=== PATIENT | male | born 1985 | race Caucasian/White ===

== ENCOUNTER 2018-01-21 15:22 | Emergency (ER) | payer OTHER ==
[~2018-01-21] VITALS: Ht 182.9 cm; Wt 83.7 kg
[2018-01-21 15:28] VITALS: BP 150/72; PULSE 81; RESP 16; TEMP 97.7; O2SAT 98
[2018-01-21] MEDS ORDERED: BUSP5TAB PO (16:15)
[2018-01-21] MEDS ORDERED: PAXI10TA8 PO (16:15)
[2018-01-21] MEDS ORDERED: SODIUM CHLORIDE 0.9% FLUSH 10 ML FLUSH IVF PRN (16:15)
[2018-01-21 16:16] VITALS: BP 142/68; PULSE 70; RESP 16; O2SAT 98
[2018-01-21 16:20] VITALS: BP_SYST 124; BP_SYST 142; BP_DIAS 71; BP_DIAS 78; PULSE 75; RESP 16; O2SAT 99
--- NOTE | 2018-01-21 16:21 | PD ---
HPI Chief Complaint: Chest Pain Time Seen by Provider: 16:13 Travel History International Travel<30 days: No Contact w/Intl Traveler<30days: No Traveled to known affect area: No History of Present Illness HPI 32-year-old male patient with history of no significant past medical issues, presents to the ER today with one-week history of substernal chest discomfort which she rates at an 8 out of 10 at times, shortness of breath, paresthesias around the fingers and the lips, seen last week by the CT and prescribed Paxil and BuSpar, states that is not helping that much, feels worse today. He had taken the BuSpar before he came and states that it is now subsiding. He denies being more stressed out than usual. He denies any long car rides or train rides. Modifying Factors: None Associated Signs & Symptoms: Chest discomfort, shortness of breath, paresthesias , palpitations Risk Factors: Seen for the same recently at the CT last week, diagnosed with anxiety [facility] Social History Tobacco Use: No Allergies-Medications (Allergen,Severity, Reaction): Coded Allergies: No Known Allergies (Unverified , 01/21/18) Reported Meds & Prescriptions Reported Meds & Active Scripts Active Reported Paxil (Paroxetine HCl) 10 Mg Tab 10 Mg PO DAILY Buspirone (Buspirone HCl) 5 Mg Tab 5 Mg PO BID Review of Systems Except as stated in HPI: all other systems reviewed are Neg Physical Exam Narrative GENERAL: Well-developed young male patient currently in mild distress. Awake and oriented 3. SKIN: Focused skin assessment warm/dry. HEAD: Atraumatic. Normocephalic. EYES: Pupils equal and round. No scleral icterus. No injection or drainage. ENT: No nasal bleeding or discharge. Mucous membranes pink and moist. NECK: Trachea midline. No JVD. Supple. CARDIOVASCULAR: Regular rate and rhythm. No murmur appreciated. Pulses are present and equal bilaterally. RESPIRATORY: No accessory muscle use. Clear to auscultation. Breath sounds equal bilaterally. GASTROINTESTINAL: Abdomen soft, non-tender, nondistended. Hepatic and splenic margins not palpable. MUSCULOSKELETAL: No obvious deformities. No clubbing. No cyanosis. No edema. NEUROLOGICAL: Awake and alert. No obvious cranial nerve deficits. Motor grossly within normal limits. Normal speech. PSYCHIATRIC: Appropriate mood and affect; insight and judgment normal. Data Data Last Documented VS Vital Signs Date Time Temp Pulse Resp B/P (MAP) Pulse Ox O2 Delivery O2 Flow Rate FiO2 01/21/18 18:04 67 18 111/76 (88) 99 Room Air 01/21/18 15:28 97.7 Orders Orders Electrocardiogram (01/21/18 15:31) Ckmb (Isoenzyme) Profile (01/21/18 16:13) Complete Blood Count With Diff (01/21/18 16:13) Comprehensive Metabolic Panel (01/21/18 16:13) D-Dimer (01/21/18 16:13) Magnesium (Mg) (01/21/18 16:13) Prothrombin Time / Inr (Pt) (01/21/18 16:13) Act Partial Throm Time (Ptt) (01/21/18 16:13) Troponin I (01/21/18 16:13) Ecg Monitoring (01/21/18 16:13) Bilateral Bp Monitoring (01/21/18 16:13) Iv Access Insert/Monitor (01/21/18 16:13) Oximetry (01/21/18 16:13) Oxygen Administration (01/21/18 16:13) Sodium Chloride 0.9% Flush (Ns Flush) (01/21/18 16:15) Chest, Pa & Lat (01/21/18 16:13) Labs Laboratory Tests Test 01/21/18 17:20 White Blood Count 7.0 TH/MM3 Red Blood Count 4.71 MIL/MM3 Hemoglobin 14.4 GM/DL Hematocrit 41.9 % Mean Corpuscular Volume 88.9 FL Mean Corpuscular Hemoglobin 30.6 PG Mean Corpuscular Hemoglobin Concent 34.4 % Red Cell Distribution Width 11.7 % Platelet Count 282 TH/MM3 Mean Platelet Volume 6.5 FL Neutrophils (%) (Auto) 56.7 % Lymphocytes (%) (Auto) 27.5 % Monocytes (%) (Auto) 11.3 % Eosinophils (%) (Auto) 3.7 % Basophils (%) (Auto) 0.8 % Neutrophils # (Auto) 3.9 TH/MM3 Lymphocytes # (Auto) 1.9 TH/MM3 Monocytes # (Auto) 0.8 TH/MM3 Eosinophils # (Auto) 0.3 TH/MM3 Basophils # (Auto) 0.1 TH/MM3 CBC Comment DIFF FINAL Differential Comment Prothrombin Time 10.4 SEC Prothromb Time International Ratio 1.0 RATIO Activated Partial Thromboplast Time 24.6 SEC D-Dimer Quantitative (PE/DVT) LESS THAN 0.19 MG/L FEU Blood Urea Nitrogen 15 MG/DL Creatinine 0.77 MG/DL Random Glucose 79 MG/DL Total Protein 6.7 GM/DL Albumin 3.6 GM/DL Calcium Level 8.5 MG/DL Magnesium Level 2.3 MG/DL Alkaline Phosphatase 68 U/L Aspartate Amino Transf (AST/SGOT) 9 U/L Alanine Aminotransferase (ALT/SGPT) 19 U/L Total Bilirubin 0.2 MG/DL Sodium Level 141 MEQ/L Potassium Level 3.8 MEQ/L Chloride Level 106 MEQ/L Carbon Dioxide Level 28.3 MEQ/L Anion Gap 7 MEQ/L Estimat Glomerular Filtration Rate 117 ML/MIN Total Creatine Kinase 68 U/L Troponin I LESS THAN 0.02 NG/ML MDM Medical Decision Making Medical Screen Exam Complete: Yes Emergency Medical Condition: Yes Medical Record Reviewed: Yes Interpretation(s) EKG shows a normal sinus rhythm at a rate of 70 bpm. No signs of delta waves, or QT prolongation. Laboratory Tests Test 01/21/18 17:20 Mean Platelet Volume 6.5 FL (7.0-11.0) Monocytes (%) (Auto) 11.3 % (0.0-8.0) Aspartate Amino Transf (AST/SGOT) 9 U/L (15-37) Troponin I LESS THAN 0.02 NG/ML Last 24 hours Impressions Chest X-Ray 01/21/18 1613 Signed Impressions: Service Date/Time: Sunday, January 21, 2018 16:20 - CONCLUSION: No acute disease. Óscar See MD FACR Differential Diagnosis Anxiety attack versus dysrhythmias versus metabolic issues versus ACS Narrative Course EKG did not show any signs of dysrhythmias. Chest x-ray and lab work was fairly unremarkable. Patient's symptoms are settling down while he was observed in the ER. At this point, I have discussed the findings with the patient and have discussed outpatient follow-up for cardiac evaluation versus admission for the chest pain center for further cardiac evaluation. Patient states that he is scheduled to get a Holter monitor this coming week and has already seen primary care doctor who is doing further workup. He states he is comfortable following up as an outpatient. He should return for worsening in symptoms as necessary. The plan has been discussed with the patient and he states understanding. Diagnosis Primary Impression: Atypical chest pain Disposition: 01 DISCHARGE HOME Condition: Stable Miguel Robertson MD Jan 21, 2018 16:21
--- NOTE | 2018-01-21 16:43 | RADRPT ---
EXAM DATE/TIME: 01/21/2018 16:20 [place] COMPARISON: No previous studies available for comparison. INDICATIONS : Chest pain. MEDICAL HISTORY : None. SURGICAL HISTORY : None. ENCOUNTER: Initial ACUITY: 1 day PAIN SCORE: 7/10 LOCATION: Bilateral chest FINDINGS: PA and lateral views of the chest demonstrate the lungs to be symmetrically aerated without evidence of mass, infiltrate or effusion. The cardiomediastinal contours are unremarkable. Osseous structure s are intact. CONCLUSION: No acute disease. Óscar See MD FACR on January 21, 2018 at 16:41 Board Certified Radiologist. This report was verified electronically.
[2018-01-21 17:25] VITALS: O2SAT 98
[2018-01-21 17:25] LABS: AUTOMATED NEUTROPHIL # 3.9 TH/MM3 (1.8-7.7); BASOPHIL # 0.1 TH/MM3 (0-0.2); BASOPHIL % 0.8 % (0.0-2.0); EOSINOPHIL # 0.3 TH/MM3 (0-0.4); EOSINOPHIL % 3.7 % (0.0-4.0); HEMATOCRIT 41.9 % (39.0-51.0); HEMOGLOBIN 14.4 GM/DL (13.0-17.0); LYMPH % 27.5 % (9.0-44.0); LYMPHOCYTE # 1.9 TH/MM3 (1.0-4.8); MEAN CELL VOLUME 88.9 FL (80.0-100.0); MEAN CORPUSCULAR HEMOGLOBIN 30.6 PG (27.0-34.0); MEAN CORPUSCULAR HGB CONC 34.4 % (32.0-36.0); MEAN PLATELET VOLUME 6.5 FL (7.0-11.0); MONO % 11.3 % (0.0-8.0); MONOCYTE # 0.8 TH/MM3 (0-0.9); NEUT % 56.7 % (16.0-70.0); PLATELET COUNT 282 TH/MM3 (150-450); RED BLOOD COUNT 4.71 MIL/MM3 (4.50-5.90); RED CELL DISTRIBUTION WIDTH 11.7 % (11.6-17.2)
[2018-01-21 17:34] LABS: CHLORIDE 106 MEQ/L (98-107); SODIUM (NA) 141 MEQ/L (136-145)
[2018-01-21 17:38] LABS: ALBUMIN 3.6 GM/DL (3.4-5.0); BICARBONATE 28.3 MEQ/L (21.0-32.0); BLOOD UREA NITROGEN 15 MG/DL (7-18); CALCIUM 8.5 MG/DL (8.5-10.1); GLUCOSE,RANDOM 79 MG/DL (74-106); MAGNESIUM 2.3 MG/DL (1.5-2.5)
[2018-01-21 17:41] LABS: ALT (GPT) 19 U/L (12-78); AST (GOT) 9 U/L (15-37)
[2018-01-21 17:42] LABS: CREATININE 0.77 MG/DL (0.60-1.30); GLOMERULAR FILTRATION RATE 117 ML/MIN (>89)
[2018-01-21 17:43] LABS: TOTAL BILIRUBIN ADULT 0.2 MG/DL (0.2-1.0); TOTAL PROTEIN 6.7 GM/DL (6.4-8.2)
[2018-01-21 17:44] LABS: ALKALINE PHOSPHATASE 68 U/L (45-117)
[2018-01-21 17:46] LABS: TROPONIN I LESS THAN 0.02 NG/ML (0.02-0.05)
[2018-01-21 17:56] LABS: PROTHROMBIN TIME - PATIENT 10.4 SEC (9.8-11.6)
[2018-01-21 18:01] LABS: D-DIMER LESS THAN 0.19 MG/L FEU (0.00-0.50)
[2018-01-21 18:04] VITALS: BP 111/76; PULSE 67; RESP 18; O2SAT 99
--- NOTE | 2018-01-22 16:45 | EKG ---
Date Performed: 01/21/2018 Time Performed: 15:35:19 PTAGE: 32 years EKG: Sinus rhythm POSSIBLE RIGHT VENTRICULAR CONDUCTION DELAY BORDERLINE ECG INTERPRETATION BASED ON A DEFAULT AGE OF 40 YEARS NO PREVIOUS TRACING DOCTOR: Sam Hester Interpretating Date/Time 01/22/2018 16:46:21
== END 2018-01-21 19:03 | disposition home or self-care (01) ==
LOC: PHED 15:22
DX: R07.89 Other chest pain (principal); R06.02 Shortness of breath; R20.2 Paresthesia of skin; F41.9 Anxiety disorder, unspecified; Z79.899 Other long term (current) drug therapy
CPT/HCPCS: 71046; 80053; 82550; 83735; 84484; 85025; 85379; 85610; 85730; 93005; 99285

== ENCOUNTER 2018-07-26 10:48 | Observation (INO) ==
[2018-07-26] MEDS ORDERED: Sod Chloride 0.9% Inj 1,000 ML IV.SIG ONE (11:12)
[2018-07-26] MEDS ORDERED: Aluminum/Magnesium/Simethacone Susp 30 ML UDC PO ONE (11:12)
--- NOTE | 2018-07-26 11:16 | ED ---
HPI General Chief complaint: Abdominal Pain Stated complaint: ABD PAIN, N/V/D Time Seen by Provider: 07/26/18 11:05 History of Present Illness HPI narrative: 33-year-old male with history of GERD, started taking ranitidine 3 weeks ago, here for evaluation of 3-4 days of abdominal pain, nausea, vomiting , and diarrhea. Patient reports mid and epigastric abdominal pain that he describes as a knot type sensation, currently 6 out of 10, constant, intermittent and worse at times, nonradiating. The patient notices his symptoms seem worse after eating tomato based products. Bowel movements have been loose/watery/brown. He denies melena or hematochezia. Last episode of vomiting was 2 days ago. He reports feeling nauseous today. No fevers or chills. No history of abdominal surgeries. No recent travel. No sick contacts. Denies alcohol or illicit drug use. Related Data Home Medications Medication Instructions Recorded Confirmed buspirone 7.5 mg PO TID 07/26/18 07/26/18 ranitidine HCl [Zantac] 150 mg PO DAILY 07/26/18 07/26/18 Allergies Allergy/AdvReac Type Severity Reaction Status Date / Time No Known Allergies Allergy Verified 07/26/18 11:41 Review of Systems ROS: all other systems reviewed are negative [facility] Medical History Medical History GERD (gastroesophageal reflux disease) (Acute) Panic attack (Acute) Anxiety (Acute) PTSD (post-traumatic stress disorder) (Acute) Surgical History Surgical History No history of previous surgery (Acute) Social History Social History Substance History: Active Abuse Second Hand Smoke Exposure: No Smoking Status: Former smoker Tobacco Type: Cigarettes How Often Do You Have a Drink Containing Alcohol: Never Recent Travel in [facility] within the Last 8 Weeks: No Recent Out of Country Travel within the Last 8 Weeks: No Exam Narrative Exam Narrative: GENERAL: Well-developed, well-nourished, comfortable, no apparent distress. SKIN: Focused skin assessment warm/dry. No rash. HEAD: Atraumatic. Normocephalic. EYES: Pupils equal and round. No scleral icterus. No injection or drainage. ENT: Mucous membranes pink and moist. NECK: Trachea midline. No JVD. CARDIOVASCULAR: Regular rate and rhythm. RESPIRATORY: No accessory muscle use. Clear to auscultation. Breath sounds equal bilaterally. GASTROINTESTINAL: Abdomen soft, nondistended. Mild mid and epigastric tenderness without peritoneal signs. Normal bowel sounds. Rest of abdomen is soft and nontender. No hernias. MUSCULOSKELETAL: No obvious deformities. No clubbing. No cyanosis. No edema. NEUROLOGICAL: Awake and alert. No obvious cranial nerve deficits. Motor grossly within normal limits. Normal speech. PSYCHIATRIC: Appropriate mood and affect; insight and judgment normal. Course Initial Documented Vital Signs Temperature 98 F 07/26/18 10:51 Pulse Rate 80 07/26/18 10:51 Respiratory Rate 16 07/26/18 10:51 Blood Pressure 100/61 07/26/18 10:51 Pulse Oximetry 96 07/26/18 10:51 Last Documented Vital Signs Temperature 98 F 07/26/18 10:51 Pulse Rate 80 07/26/18 10:51 Respiratory Rate 16 07/26/18 10:51 Blood Pressure 100/61 07/26/18 10:51 Pulse Oximetry 96 07/26/18 10:51 Medical Decision Making MDM Narrative Medical decision making narrative: Vital signs reviewed. CBC is unremarkable. CMP is essentially unremarkable. Lipase is 733. CT abdomen pelvis: No acute findings. Patient was made aware of all findings. At this point he was provided a GI cocktail and Zofran without any improvement in his pain. He will be given a dose of morphine, and a right upper quadrant ultrasound will be ordered to rule out gallstones/gallstone pancreatitis. Right upper quadrant ultrasound read as unremarkable study. Patient was provided 4 mg of IV morphine. This gave him a flushing/lightheaded sensation as well as made him feel short of breath. The symptoms quickly resolved. States his pain has improved slightly, however is still a 4 out of 10. Case discussed with hospitalist Dr. Oscar who will admit the patient to the hospitalist service. Medical Screen Exam Complete: Yes Emergency Medical Condition: Yes Differential Diagnosis Differential Diagnosis: Gastritis, peptic ulcer disease, pancreatitis, hepatobiliary disease, gastroenteritis, appendicitis, colitis, diverticulitis Lab Data Result diagrams: 07/26/18 11:30 07/26/18 11:30 Lab Results 07/26/18 07/26/18 07/26/18 Range/Units 11:30 11:30 11:30 CBC w Diff Auto diff final WBC 4.1 (4.0-11.0) th/mm3 RBC 4.75 (4.50-5.90) mil/mm3 Hgb 15.0 (13.0-17.0) gm/dL Hct 43.5 (39.0-51.0) % MCV 91.5 (80.0-100.0) fL MCH 31.6 (27.0-34.0) pg MCHC 34.5 (32.0-36.0) % RDW 11.3 L (11.6-17.2) % Plt Count 256 (150-450) th/mm3 MPV 6.9 L (7.0-11.0) fL Neut % (Auto) 55.1 (16.0-70.0) % Lymph % (Auto) 30.9 (9.0-44.0) % [place] % (Auto) 8.7 H (0.0-8.0) % Eos % (Auto) 3.7 (0.0-4.0) % Baso % (Auto) 1.6 (0.0-2.0) % Neut # (Auto) 2.1 (1.8-7.7) th/mm3 Lymph # (Auto) 1.3 (1.0-4.8) th/mm3 [place] # (Auto) 0.4 (0.0-0.9) th/mm3 Eos # (Auto) 0.2 (0.0-0.4) th/mm3 Baso # (Auto) 0.1 (0.0-0.2) th/mm3 WBC Differential . Differential Comment . PT 10.5 (9.8-11.6) sec INR 1.0 Ratio APTT 25.2 (24.3-30.1) sec Sodium 141 (136-145) meq/L Potassium 4.2 (3.5-5.1) meq/L Chloride 105 (98-107) meq/L Carbon Dioxide 29.7 (21.0-32.0) meq/L Anion Gap 6 (5-15) meq/L BUN 10 (7-18) mg/dL Creatinine 0.77 (0.60-1.30) mg/dL Estimated GFR Greater than 89 (>89) mL/min Random Glucose 91 (74-106) mg/dL Calcium 8.3 L (8.5-10.1) mg/dL Magnesium 2.1 (1.5-2.5) mg/dL Total Bilirubin 0.4 (0.2-1.0) mg/dL AST 14 L (15-37) U/L ALT 18 (12-78) U/L Alkaline Phosphatase 63 (45-117) U/L Troponin I Less than 0.02 L (0.02-0.05) ng/mL Total Protein 6.7 (6.4-8.2) g/dL Albumin 3.6 (3.4-5.0) g/dL Lipase 733 H (73-393) U/L Ur Collection Type Urine Color (Yellw/Straw) Urine Clarity (Clear) Urine pH (5.0-8.5) Ur Specific [place] (1.002-1.035) Urine Protein (Neg-Trace) mg/dL Urine Glucose (UA) (Negative) mg/dL Urine Ketones (Negative) mg/dL Urine Occult Blood (Negative) Urine Nitrate (Negative) Urine Bilirubin (Negative) Urine Urobilinogen (Less than 2) mg/dL Ur Leukocyte Esterase (Negative) Urine RBC (0-3) /hpf Ur Squamous Epith Cells (0-5) /hpf Micro UA Comment Ur Microscopic Review Urine Culture Comments 07/26/18 Range/Units 12:20 CBC w Diff WBC (4.0-11.0) th/mm3 RBC (4.50-5.90) mil/mm3 Hgb (13.0-17.0) gm/dL Hct (39.0-51.0) % MCV (80.0-100.0) fL MCH (27.0-34.0) pg MCHC (32.0-36.0) % RDW (11.6-17.2) % Plt Count (150-450) th/mm3 MPV (7.0-11.0) fL Neut % (Auto) (16.0-70.0) % Lymph % (Auto) (9.0-44.0) % [place] % (Auto) (0.0-8.0) % Eos % (Auto) (0.0-4.0) % Baso % (Auto) (0.0-2.0) % Neut # (Auto) (1.8-7.7) th/mm3 Lymph # (Auto) (1.0-4.8) th/mm3 [place] # (Auto) (0.0-0.9) th/mm3 Eos # (Auto) (0.0-0.4) th/mm3 Baso # (Auto) (0.0-0.2) th/mm3 WBC Differential Differential Comment PT (9.8-11.6) sec INR Ratio APTT (24.3-30.1) sec Sodium (136-145) meq/L Potassium (3.5-5.1) meq/L Chloride (98-107) meq/L Carbon Dioxide (21.0-32.0) meq/L Anion Gap (5-15) meq/L BUN (7-18) mg/dL Creatinine (0.60-1.30) mg/dL Estimated GFR (>89) mL/min Random Glucose (74-106) mg/dL Calcium (8.5-10.1) mg/dL Magnesium (1.5-2.5) mg/dL Total Bilirubin (0.2-1.0) mg/dL AST (15-37) U/L ALT (12-78) U/L Alkaline Phosphatase (45-117) U/L Troponin I (0.02-0.05) ng/mL Total Protein (6.4-8.2) g/dL Albumin (3.4-5.0) g/dL Lipase (73-393) U/L Ur Collection Type Clean catch Urine Color Yellow (Yellw/Straw) Urine Clarity Clear (Clear) Urine pH 8.5 (5.0-8.5) Ur Specific [place] 1.010 (1.002-1.035) Urine Protein Negative (Neg-Trace) mg/dL Urine Glucose (UA) Negative (Negative) mg/dL Urine Ketones Negative (Negative) mg/dL Urine Occult Blood Negative (Negative) Urine Nitrate Negative (Negative) Urine Bilirubin Negative (Negative) Urine Urobilinogen 0.2 (Less than 2) mg/dL Ur Leukocyte Esterase Negative (Negative) Urine RBC 0-3 (0-3) /hpf Ur Squamous Epith Cells 0-5 (0-5) /hpf Micro UA Comment Culture not ind Ur Microscopic Review Microscopic reviewed Urine Culture Comments Culture not ind Imaging Data Radiologist's impression: Abdomen/Pelvis CT 07/26/18 11:12 CONCLUSION: No acute CT findings in the abdomen or pelvis. Gallbladder Ultrasound 07/26/18 12:20 CONCLUSION: 1. Unremarkable study. ECG Data Attestation: I personally reviewed and interpreted this ECG as follows: (Sinus with sinus arrhythmia, rate 61, normal axis, incomplete RBBB, no acute ischemic abnormality.) Discharge Plan Discharge Disposition Patient Disposition: 30 Still Patient Discharge Condition Condition: Stable Discharge Details Diagnosis: Pancreatitis, Intractable abdominal pain Physicians Team ED Provider: Mike Gutierrez Primary Care Provider: UNKNOWN, Rxs /Orders / Referrals /Forms Prescriptions: No Action ranitidine HCl [Zantac] 150 mg Tablet 150 mg PO DAILY RF: 0 buspirone 7.5 mg Tablet 7.5 mg PO TID RF: 0 Status ED Status: With Doctor
[2018-07-26 11:35] LABS: Baso # (Auto) 0.1 th/mm3 (0.0-0.2); Baso % (Auto) 1.6 % (0.0-2.0); Eos # (Auto) 0.2 th/mm3 (0.0-0.4); Eos % (Auto) 3.7 % (0.0-4.0); Hematocrit 43.5 % (39.0-51.0); Lymph # (Auto) 1.3 th/mm3 (1.0-4.8); Lymph % (Auto) 30.9 % (9.0-44.0); Mean Corpuscular HGB Conc 34.5 % (32.0-36.0); Mean Corpuscular Hemoglobin 31.6 pg (27.0-34.0); Mean Corpuscular Volume 91.5 fL (80.0-100.0); Mean Platelet Volume 6.9 fL (7.0-11.0); Mono # (Auto) 0.4 th/mm3 (0.0-0.9); Mono % (Auto) 8.7 % (0.0-8.0); Neut # (Auto) 2.1 th/mm3 (1.8-7.7); Neut % (Auto) 55.1 % (16.0-70.0); Platelet Count 256 th/mm3 (150-450); Red Blood Count 4.75 mil/mm3 (4.50-5.90); Red Cell Distribution Width 11.3 % (11.6-17.2); White Blood Count 4.1 th/mm3 (4.0-11.0)
[2018-07-26 11:45] LABS: Chloride 105 meq/L (98-107); Potassium 4.2 meq/L (3.5-5.1); Sodium 141 meq/L (136-145)
--- NOTE | 2018-07-26 11:47 | CT ---
EXAM DATE: 07/26/2018 11:14 AM EDT AGE/SEX: 33 years / Male INDICATIONS: Mid Epigastric abdominal pain with nausea, vomiting, and diarrhea. CLINICAL DATA: This is the patient's initial encounter. Patient reports that signs and symptoms have been present for 3 days and indicates a pain score of 6/10. MEDICAL/SURGICAL HISTORY: Gastroesophageal reflux disease. None. ORAL CONTRAST: No oral contrast ingested. RADIATION DOSE: 13.11 CTDI (mGy) COMPARISON: No prior exams available for comparison. TECHNIQUE: Multiple contiguous axial images were obtained through the abdomen and pelvis following b olus infusion of 95 ml Omnipaque 350 (iohexol) nonionic water-soluble contrast as a single exam dos e. No oral contrast ingested. Using automated exposure control and adjustment of the mA and/or kV ac cording to patient size, radiation dose was kept as low as reasonably achievable to obtain optimal di agnostic quality images. DICOM format image data is available electronically for review and comparis on. FINDINGS: Lower Lungs: The visualized lower lungs are clear. Liver: The liver has a homogeneous density without space-occupying lesion. There is no dilation of th e biliary tree. Spleen: Homogeneous density without enlargement. Pancreas: Unremarkable without mass or calcification. Kidneys: Normal in size and shape. No evidence of mass or hydronephrosis. Adrenal Glands: Unremarkable. Aorta: The aorta and proximal iliac vessels are grossly unremarkable without aneurysmal dilation. Bowel/Mesentery: The bowel loops are grossly unremarkable. The cecum and sigmoid colon have a normal configuration. Abdominal Wall: Intact. Retroperitoneum: No evidence of adenopathy in the retrocrural, para-aortic, or deep pelvic regions. Bladder: Contours are smooth. Reproductive Organs: No abnormal masses or calcifications seen. Inguinal: The inguinal region is unremarkable without evidence of adenopathy. Bony Structures: Unremarkable. CONCLUSION: No acute CT findings in the abdomen or pelvis. Electronically signed by: Ifeanyi Acuna MD 07/26/2018 11:46 AM EDT
[2018-07-26 11:48] LABS: Calcium 8.3 mg/dL (8.5-10.1)
[2018-07-26 11:49] LABS: Albumin 3.6 g/dL (3.4-5.0); Anion Gap 6 meq/L (5-15); Blood Urea Nitrogen 10 mg/dL (7-18); Carbon Dioxide 29.7 meq/L (21.0-32.0); Glucose,Random 91 mg/dL (74-106); Lipase 733 U/L (73-393); Magnesium 2.1 mg/dL (1.5-2.5)
[2018-07-26 11:52] LABS: Alanine Aminotransferase 18 U/L (12-78); Aspartate Aminotransferase 14 U/L (15-37); Glomerular Filtration Rate Greater Than 89 mL/min (>89)
[2018-07-26 11:53] LABS: Total Protein 6.7 g/dL (6.4-8.2)
[2018-07-26 11:54] LABS: Alkaline Phosphatase 63 U/L (45-117)
[2018-07-26 12:13] LABS: Activated Partial Thrombo Time 25.2 sec (24.3-30.1); Prothrombin Time 10.5 sec (9.8-11.6)
[2018-07-26] MEDS ORDERED: Morphine Inj 4 MG/ML Vial IV.PUSH ONE (12:20)
[2018-07-26 12:29] LABS: Bilirubin,Urine Negative (Negative); Clarity,Urine Clear (Clear); Color,Urine Yellow (Yellw/Straw); Glucose,Urine (UA) Negative (Negative); Leukocyte Esterase,Urine Negative (Negative); Nitrite,Urine Negative (Negative); PH,Urine 8.5 (5.0-8.5); Urobilinogen,Urine 0.2 mg/dL (Less than 2)
[2018-07-26 12:36] LABS: RBC,Urine 0-3 /hpf (0-3); Squamous Epithelial Cell,Urine 0-5 /hpf (0-5)
--- NOTE | 2018-07-26 13:03 | US ---
EXAM DATE: 07/26/2018 12:20 PM EDT AGE/SEX: 33 years / Male INDICATIONS: Right upper quadrant pain. CLINICAL DATA: This is the patient's initial encounter. Patient reports that signs and symptoms have been present for 1 day and indicates a pain score of 5/10. MEDICAL/SURGICAL HISTORY: Gastroesophageal reflux disease. None. COMPARISON: No prior exams available for comparison. MEASUREMENTS: Liver:__ 16.4 cm. Common Bile Duct:__ 4mm. FINDINGS: Liver: Normal echotexture without focal lesion or ductal dilatation. Portal Vein: Hepatopedal flow seen in portal vein. Common Duct: No intraluminal mass or stone visualized. Gallbladder: Demonstrates no wall thickening or pericholecystic fluid. No stones visualized. Pancreas: The visualized portions are within normal limits Right Kidney: Normal echotexture and cortical thickness. No mass or hydronephrosis. Other: None. CONCLUSION: 1. Unremarkable study. Electronically signed by: Brenda London MD 07/26/2018 1:02 PM EDT
--- NOTE | 2018-07-26 14:37 | ECG ---
Date Performed: 07/26/2018 Time Performed: 12:26:46 PTAGE: 33 years EKG: Sinus rhythm WITH SINUS ARRHYTHMIA INCOMPLETE RIGHT BUNDLE BRANCH BLOCK BORDERLINE ECG No significant change from prior electrocardiogram. PREVIOUS TRACING : 05/02/2018 19.52 DOCTOR: Vinay Jones Interpretating Date/Time 07/26/2018 14:35:33
--- NOTE | 2018-07-26 15:02 | P.HPIM ---
History of Present Illness Primary Care Physician: UNKNOWN Chief Complaint: abdominal pain History of Present Illness: patient is a 33 y/o male with history of PTSD and acid reflux who presented to ER with abdominal pain. he says that the pain started two weeks ago. the pain is periumbilical and epigastric. pain is more or less constant and was associated with nausea and vomiting. he had diarrhea for a couple of days.he denies any rectal bleed or hematemesis. Review of Systems All other systems reviewed negative except as stated in HPI PMFSH - History History Provided By: Patient - Medical History Medical History: Medical History (Last Reviewed 07/26/18 @ 14:59 by Fransisca Oscar MD) GERD (gastroesophageal reflux disease) Panic attack Anxiety PTSD (post-traumatic stress disorder) - Surgical History Surgical History: Surgical History (Last Reviewed 07/26/18 @ 14:59 by Fransisca Oscar MD) No history of previous surgery - Family History Family History: Family History (Last Updated 07/26/18 @ 14:59 by Fransisca Oscar MD) Other No pertinent family history - Tobacco History Second Hand Smoke Exposure: No Tobacco Use In Past 30 Days: No Smoking Status: Former smoker Tobacco Type: Cigarettes - Alcohol History How Often Do You Have a Drink Containing Alcohol: Never - Substance Use History Substance History: Active Abuse - Substance Use Type Marijuana Status: Active Route Used: By Mouth, Inhalation - Travel History Recent Travel in the [place] Within the Last 8 Weeks: No Recent Travel Out of the Country Within the Last 8 Weeks: No - Immunization History Tetanus Immunization: >5 Years Medications and Allergies Active Medications: Active Medications Sodium Chloride (Ns Inj) 1,000 mls @ 125 mls/hr IV.CONT .Q8H TERRA Ondansetron HCl (Zofran Inj) 4 mg IV.PUSH Q8H PRN PRN Reason: nausea Sodium Chloride (Ns Flush) 2 ml IV.FLUSH PRN PRN PRN Reason: FLUSH AFTER USING IV ACCESS Last Admin: 07/26/18 11:31 Dose: 2 ml Allergies Allergy/AdvReac Type Severity Reaction Status Date / Time No Known Allergies Allergy Verified 07/26/18 11:41 Home Medications Medication Instructions Recorded Confirmed Type buspirone 7.5 mg PO TID 07/26/18 07/26/18 History divalproex [Depakote ER] 500 mg PO HS 07/26/18 07/26/18 History ranitidine HCl [Zantac] 150 mg PO DAILY 07/26/18 07/26/18 History Exam Vital signs: Vital Signs 07/26/18 10:51 07/26/18 12:15 07/26/18 13:35 Temperature 98 F Pulse Rate 80 66 62 Respiratory Rate 16 16 16 Blood Pressure 100/61 112/65 105/55 L Pulse Oximetry 96 96 96 07/26/18 14:02 Temperature Pulse Rate Respiratory Rate 16 Blood Pressure Pulse Oximetry Intake & Output 07/25/18 07/26/18 07/26/18 18:59 06:59 18:59 Intake Total 1000 / 1000 Balance 1000 / 1000 Weight 90.4 kg Intake: IV 1000 / 1000 NS Inj 1,000 ML @ Wide Open IV. 1000 / 1000 SIG BOLUS ONE Rx#:[id number] - Constitutional no acute distress - Routine HEENT Exam Eye: Present: PERRL - Routine Neck Exam Present: supple - Routine Respiratory Exam Present: CTA bilaterally - Routine Cardiovascular Exam Present: RRR - Routine Abdominal Exam Present: soft, tenderness (mild periumbilical/ epigastric tenderness) - Routine Extremities Exam Comments: no pedal edema. - Routine Neurological Exam Present: alert, oriented X3 Results - Labs CBC & Chem 7: 07/26/18 11:30 07/27/18 06:05 Labs: Short CBC 07/26/18 Range/Units 11:30 WBC 4.1 (4.0-11.0) th/mm3 Hgb 15.0 (13.0-17.0) gm/dL Hct 43.5 (39.0-51.0) % Plt Count 256 (150-450) th/mm3 BMP 07/26/18 11:30 Sodium 141 Potassium 4.2 Chloride 105 Carbon Dioxide 29.7 BUN 10 Creatinine 0.77 Calcium 8.3 L Cardiac Enzymes 07/26/18 Range/Units 11:30 Troponin I Less than 0.02 L (0.02-0.05) ng/mL Liver Function 07/26/18 Range/Units 11:30 Total Bilirubin 0.4 (0.2-1.0) mg/dL AST 14 L (15-37) U/L ALT 18 (12-78) U/L Alkaline Phosphatase 63 (45-117) U/L Albumin 3.6 (3.4-5.0) g/dL Urine 07/26/18 Range/Units 12:20 Urine Color Yellow (Yellw/Straw) Urine Clarity Clear (Clear) Urine pH 8.5 (5.0-8.5) Ur Specific Melber 1.010 (1.002-1.035) Urine Protein Negative (Neg-Trace) mg/dL Urine Glucose (UA) Negative (Negative) mg/dL - Imaging Impressions Abdomen/Pelvis CT 07/26/18 11:12 CONCLUSION: No acute CT findings in the abdomen or pelvis. Gallbladder Ultrasound 07/26/18 12:20 CONCLUSION: 1. Unremarkable study. Caprini VTE Risk Assessment Caprini VTE Risk Assessment: No/Low Risk (score <= 1) Caprini Risk Assessment Model: Point Value = 1 Point Value = 2 Point Value = 3 Point Value = 5 Age 41-60 Minor surgery BMI > 25 kg/m2 Swollen legs Varicose veins or History of unexplained or recurrent spontaneous Oral contraceptives or hormone replacement Sepsis (< 1 month) Serious lung disease, including pneumonia (< 1 month) Abnormal pulmonary function Acute myocardial infarction Congestive heart failure (< 1 month) History of inflammatory bowel disease Medical patient at bed rest Age 61-74 Arthroscopic surgery Major open surgery (> 45 min) Laparoscopic surgery (> 45 min) Malignancy Confined to bed (> 72 hours) Immobilizing plaster cast Central venous access Age >= 75 History of VTE Family history of VTE Factor V Leiden Prothrombin [id number] Lupus anticoagulant Anticardiolipin antibodies Elevated serum homocysteine Heparin-induced thrombocytopenia Other congenital or acquired thrombophilia Stroke (< 1 month) Elective arthroplasty Hip, pelvis, or leg fracture Acute spinal cord injury (< 1 month) Prophylaxis Regimen: Total Risk Factor Score Risk Level Prophylaxis Regimen 0-1 Low Early ambulation 2 Moderate Order ONE of the following: *Sequential Compression Device (SCD) *Heparin 5000 units SQ BID 3-4 Higher Order ONE of the following medications: *Heparin 5000 units SQ TID *Enoxaparin/Lovenox 40 mg SQ daily (WT < 150 kg, CrCl > 30 mL/min) *Enoxaparin/Lovenox 30 mg SQ daily (WT < 150 kg, CrCl > 10-29 mL/min) *Enoxaparin/Lovenox 30 mg SQ BID (WT < 150 kg, CrCl > 30 mL/min) AND/OR *Sequential Compression Device (SCD) 5 or more Highest Order ONE of the following medications: *Heparin 5000 units SQ TID (Preferred with Epidurals) *Enoxaparin/Lovenox 40 mg SQ daily (WT < 150 kg, CrCl > 30 mL/min) *Enoxaparin/Lovenox 30 mg SQ daily (WT < 150 kg, CrCl > 10-29 mL/min) *Enoxaparin/Lovenox 30 mg SQ BID (WT < 150 kg, CrCl > 30 mL/min) AND *Sequential Compression Device (SCD) Assessment and Plan - Plan A/P - abdominal pain- possible gastritis -elevated lipase - CT abdomen and US with no acute abnormality. keep NPO for now. continue with supportive care with IV fluid, pain control and antiemetics. start on PPI. -PTSD/anxiety; resume home meds. Discussed Condition With: ER physician and the patient. Discharge Planning: home tomorrow if improves.
[2018-07-26] MEDS ORDERED: Pantoprazole Inj 40 MG Vial IV.PUSH SCH (16:00)
[2018-07-26] MEDS: Sod Chloride 0.9% Inj 1,000 ML IV.CONT SCH (16:40)
[2018-07-27] MEDS: Sod Chloride 0.9% Inj 1,000 ML IV.CONT SCH ×2 (00:41→09:59)
[2018-07-27 06:50] LABS: Chloride 107 meq/L (98-107); Potassium 4.5 meq/L (3.5-5.1); Sodium 142 meq/L (136-145)
[2018-07-27 06:54] LABS: Calcium 8.2 mg/dL (8.5-10.1)
[2018-07-27 06:55] LABS: Albumin 3.1 g/dL (3.4-5.0); Anion Gap 5 meq/L (5-15); Blood Urea Nitrogen 9 mg/dL (7-18); Carbon Dioxide 29.8 meq/L (21.0-32.0); Glucose,Random 90 mg/dL (74-106); Lipase 101 U/L (73-393)
[2018-07-27 06:57] LABS: Alanine Aminotransferase 17 U/L (12-78); Aspartate Aminotransferase 10 U/L (15-37)
[2018-07-27 06:58] LABS: Glomerular Filtration Rate Greater Than 89 mL/min (>89)
[2018-07-27 06:59] LABS: Total Protein 5.8 g/dL (6.4-8.2)
[2018-07-27 07:00] LABS: Alkaline Phosphatase 61 U/L (45-117)
--- NOTE | 2018-07-27 07:47 | P.PNIM ---
Subjective Interval history: f/u; abdominal pain in no acute distress. abdominal pain is better. no nausea or vomiting. overall feeling better. Physical Exam Vital signs: Vital Signs 07/26/18 10:51 07/26/18 12:15 07/26/18 13:35 Temperature 98 F Pulse Rate 80 66 62 Respiratory Rate 16 16 16 Blood Pressure 100/61 112/65 105/55 L Pulse Oximetry 96 96 96 07/26/18 14:02 07/26/18 18:17 07/26/18 20:00 Temperature 97.5 F L 97.2 F L Pulse Rate 57 L 62 Respiratory Rate 16 14 18 Blood Pressure 113/63 114/72 Pulse Oximetry 97 98 07/27/18 00:00 07/27/18 01:30 Temperature 97.4 F L Pulse Rate 66 Respiratory Rate 18 18 Blood Pressure 118/66 Pulse Oximetry 98 Intake & Output 07/26/18 07/27/18 07/27/18 18:59 06:59 18:59 Intake Total 1000 / 1000 1000 / 1000 Output Total 303 / 303 Balance 1000 / 1000 697 / 697 Weight 90.4 kg 90.4 kg Intake: IV 1000 / 1000 1000 / 1000 NS Inj 1,000 ML @ 125 mls/hr IV 1000 / 1000 .CONT .Q8H TERRA Rx#:[id number] NS Inj 1,000 ML @ Wide Open IV. 1000 / 1000 SIG BOLUS ONE Rx#:[id number] Output: Urine 303 / 303 Other: Date of Last Bowel Movement 07/26/18 - Constitutional no acute distress - Routine Respiratory Exam Present: CTA bilaterally - Routine Cardiovascular Exam Present: RRR - Routine Abdominal Exam Present: soft - Routine Extremities Exam Comments: no pedal edema. - Routine Neurological Exam Present: alert, oriented X3 Results - Labs CBC & Chem 7: 07/26/18 11:30 07/27/18 06:05 Laboratory Results - last 24 hr 07/26/18 07/26/18 07/26/18 11:30 11:30 11:30 CBC w Diff Auto diff final WBC 4.1 RBC 4.75 Hgb 15.0 Hct 43.5 MCV 91.5 MCH 31.6 MCHC 34.5 RDW 11.3 L Plt Count 256 MPV 6.9 L Neut % (Auto) 55.1 Lymph % (Auto) 30.9 Stephens % (Auto) 8.7 H Eos % (Auto) 3.7 Baso % (Auto) 1.6 Neut # (Auto) 2.1 Lymph # (Auto) 1.3 Stephens # (Auto) 0.4 Eos # (Auto) 0.2 Baso # (Auto) 0.1 WBC Differential . Differential Comment . PT 10.5 INR 1.0 APTT 25.2 Sodium 141 Potassium 4.2 Chloride 105 Carbon Dioxide 29.7 Anion Gap 6 BUN 10 Creatinine 0.77 Estimated GFR Greater than 89 Random Glucose 91 Calcium 8.3 L Magnesium 2.1 Total Bilirubin 0.4 AST 14 L ALT 18 Alkaline Phosphatase 63 Troponin I Less than 0.02 L Total Protein 6.7 Albumin 3.6 Triglycerides Lipase 733 H Ur Collection Type Urine Color Urine Clarity Urine pH Ur Specific Mio Urine Protein Urine Glucose (UA) Urine Ketones Urine Occult Blood Urine Nitrate Urine Bilirubin Urine Urobilinogen Ur Leukocyte Esterase Urine RBC Ur Squamous Epith Cells Micro UA Comment Ur Microscopic Review Urine Culture Comments 07/26/18 07/26/18 07/27/18 11:30 12:20 06:05 CBC w Diff WBC RBC Hgb Hct MCV MCH MCHC RDW Plt Count MPV Neut % (Auto) Lymph % (Auto) Stephens % (Auto) Eos % (Auto) Baso % (Auto) Neut # (Auto) Lymph # (Auto) Stephens # (Auto) Eos # (Auto) Baso # (Auto) WBC Differential Differential Comment PT INR APTT Sodium 142 Potassium 4.5 Chloride 107 Carbon Dioxide 29.8 Anion Gap 5 BUN 9 Creatinine 0.81 Estimated GFR Greater than 89 Random Glucose 90 Calcium 8.2 L Magnesium Total Bilirubin 0.6 AST 10 L ALT 17 Alkaline Phosphatase 61 Troponin I Total Protein 5.8 L D Albumin 3.1 L Triglycerides 114 Lipase 101 Ur Collection Type Clean catch Urine Color Yellow Urine Clarity Clear Urine pH 8.5 Ur Specific Mio 1.010 Urine Protein Negative Urine Glucose (UA) Negative Urine Ketones Negative Urine Occult Blood Negative Urine Nitrate Negative Urine Bilirubin Negative Urine Urobilinogen 0.2 Ur Leukocyte Esterase Negative Urine RBC 0-3 Ur Squamous Epith Cells 0-5 Micro UA Comment Culture not ind Ur Microscopic Review Microscopic reviewed Urine Culture Comments Culture not ind - Imaging Impressions Abdomen/Pelvis CT 07/26/18 11:12 CONCLUSION: No acute CT findings in the abdomen or pelvis. Gallbladder Ultrasound 07/26/18 12:20 CONCLUSION: 1. Unremarkable study. Assessment and Plan - Plan A/P - abdominal pain- possible gastritis- improved. -elevated lipase - now wnl CT abdomen and US with no acute abnormality. start on liquid diet and advance the diet as tolerated. continue with supportive care with IV fluid, pain control and antiemetics. started on PPI. -PTSD/anxiety; resumed home meds. Discharge Planning: dc home today if tolerates the diet.
== END 2018-07-27 13:30 | disposition home or self-care (01) ==
LOC: PHEDA 10:48 → PHED 10:48 → PHEDH 14:30 → PHEDA 14:34 → PH3 16:10
PROVIDERS: ADMIT Internal Medicine; ATTEND Internal Medicine
DX: K21.9 Gastro-esophageal reflux disease without esophagitis; F17.210 Nicotine dependence, cigarettes, uncomplicated; F41.0 Panic disorder [episodic paroxysmal anxiety]; K85.90 Acute pancreatitis without necrosis or infection, unspecified; F43.10 Post-traumatic stress disorder, unspecified; R94.31 Abnormal electrocardiogram [ECG] [EKG]